=== PATIENT | female | born 1990 | race Caucasian/White ===

== ENCOUNTER 2024-04-26 00:52 | Emergency (ER) | payer MEDICAID, OTHER ==
[~2024-04-26] VITALS: Ht 162.6 cm; Wt 47.6 kg
[2024-04-26] MEDS ORDERED: diphenhydrAMINE HCL 25 MG CAPSULE ONE (02:33)
[2024-04-26] MEDS ORDERED: FAMOTIDINE (20 MG) 20 MG TABLET ONE (02:33)
[2024-04-26] MEDS ORDERED: dexaMETHasone SOD PHOSPHATE 1 ML ONE (02:34)
[2024-04-26] MEDS: dexaMETHasone SOD PHOSPHATE 4 MG/ML VIAL IM ONE (02:46)
[2024-04-26] MEDS: diphenhydrAMINE HCL 25 MG CAPSULE PO ONE (02:46)
[2024-04-26] MEDS: FAMOTIDINE (20 MG) 20 MG TABLET PO ONE (02:46)
[2024-04-26] MEDS ORDERED: PRED50TA PO (03:29)
[2024-04-26 03:43] VITALS: BP 115/82; TEMP 98.1; O2SAT 98
== END 2024-04-26 03:44 | disposition home or self-care (01) ==
LOC: ER 01:14
DX: L50.9 Urticaria, unspecified (principal); Z79.52 Long term (current) use of systemic steroids; Z60.2 Problems related to living alone
CPT/HCPCS: 99283; 96372; J1100; Q0163

== ENCOUNTER 2024-04-28 10:40 | Emergency (ER) | payer OTHER ==
[~2024-04-28] VITALS: Ht 167.6 cm; Wt 47.6 kg
[~2024-04-28 10:40] MED LIST: PRED50TA PO
[2024-04-28] MEDS ORDERED: diphenhydrAMINE HCL 50 MG/ML VIAL ONE (11:47)
[2024-04-28] MEDS ORDERED: methylPREDNISolone SOD SUCC 125 MG/2ML VIAL ONE (11:47)
[2024-04-28] MEDS ORDERED: FAMOTIDINE/PF INJ 20 MG/2 ML VIAL IV ONE (11:48)
[2024-04-28] MEDS: methylPREDNISolone SOD SUCC 125 MG/2ML VIAL IV ONE (11:55)
[2024-04-28 11:56] VITALS: BP 120/88; TEMP 98
[2024-04-28] MEDS: diphenhydrAMINE HCL 50 MG/ML VIAL IV ONE (11:56)
[2024-04-28] MEDS: FAMOTIDINE/PF INJ 20 MG/2 ML VIAL IV ONE (11:56)
[2024-04-28] MEDS: IV NS 0.9% 1,000 ML BAG IV ONE (11:56)
[2024-04-28] MEDS ORDERED: DIPH25CA83 PO (12:14)
[2024-04-28] MEDS ORDERED: FAMO-131 PO (12:14)
[2024-04-28 13:23] VITALS: O2SAT 99
== END 2024-04-28 13:25 | disposition home or self-care (01) ==
LOC: ER 10:47
DX: T78.40XA Allergy, unspecified, initial encounter (principal); L50.9 Urticaria, unspecified; Z79.52 Long term (current) use of systemic steroids; Z60.2 Problems related to living alone; X58.XXXA Exposure to other specified factors, initial encounter
CPT/HCPCS: 99284; 96374; 96375; 96361; J2919; J1200; J3490; J7030